=== PATIENT | male | born 1955 | race Caucasian/White ===

== ENCOUNTER 2022-03-14 12:21 | Outpatient (CLI) | payer MEDICARE, OTHER, SELFPAY ==
--- NOTE | ~2022-03-14 | XR_ITS ---
Bilateral Hands Technique: PA, oblique, and lateral views, and ball-catcher's view, were obtained. Clinical History: Rheumatoid arthritis Findings: No acute fracture or dislocation is seen. Osseous alignment is anatomic. Joint spaces are p reserved. Soft tissues are unremarkable. Impression: Unremarkable bilateral hands. Reviewed, dictated and finalized at location [] SEARCH MARKETING ANALYST Impression: Unremarkable bilateral hands.
--- NOTE | ~2022-03-14 | XR_ITS ---
Left foot Technique: AP and lateral weightbearing views were obtained. Clinical History: Rheumatoid arthritis Findings: No acute fracture or dislocation is seen. Osseous alignment is anatomic. Joint spaces are p reserved without erosive or degenerative change. Soft tissues are unremarkable. Impression: Unremarkable left foot radiographs. Reviewed, dictated and finalized at location [] [employer] Impression: Unremarkable left foot radiographs.
--- NOTE | ~2022-03-14 | XR_ITS ---
Right foot Technique: AP and lateral weightbearing views were obtained. Clinical History: Rheumatoid arthritis Findings: No acute fracture or dislocation is seen. Osseous alignment is anatomic. No erosive changes are identified. There is joint space narrowing and prominent osteophyte formation with reactive scle rosis involving the tibiotalar joint, most compatible with severe osteoarthritis. Soft tissues are un remarkable. 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 No definite erosive changes identified. No other significant findings. 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 No definite erosive change s identified. No other significant findings.
== END 2022-03-14 12:22 | disposition home or self-care (01) ==
PROVIDERS: PCP Internal Medicine; Visit Provider Internal Medicine
DX: M05.79 Rheumatoid arthritis with rheumatoid factor of multiple sites without organ or systems involvement (principal); F17.200 Nicotine dependence, unspecified, uncomplicated; Z71.89 Other specified counseling; Z79.899 Other long term (current) drug therapy; M19.071 Primary osteoarthritis, right ankle and foot
CPT/HCPCS: 73130; 73620

== ENCOUNTER 2022-04-21 14:06 | Outpatient (CLI) | payer MEDICARE, OTHER, SELFPAY ==
[2022-04-21 14:36] LABS: Hematocrit 50.9 % (42.0-52.0); Hemoglobin 16.2 g/dL (14.0-18.0); Mean Corpuscular HGB Conc 31.8 g/dl (32-36); Mean Corpuscular Hemoglobin 26.6 pg (26-34); Mean Corpuscular Volume 83.6 fl (80-100); Mean Platelet Volume 10.1 fl (7.4-10.4); Platelet Count Result 337 k/mm3 (150-375); Red Blood Count 6.09 M/mm3 (4.6-6.20); Red Cell Distribution Width 19.2 % (11.5-14.5); White Blood Count 13.1 K/mm3 (4.5-10.0)
[2022-04-21 15:19] LABS: Erythrocyte Sedimentation Rate 2 mm/hr (0-20)
[2022-04-21 16:50] LABS: Vitamin D 25 Hydroxy 41.7 ng/mL
[2022-04-21 16:59] LABS: Alanine Aminotransferase 32 U/L (6-50); Albumin Level 4.5 g/dL (3.5-5.1); Alkaline Phosphatase 110 U/L (38-126); Anion Gap 9 mmol/L (8-16); Aspartate Amino Transferase 36 U/L (17-59); Bilirubin,Total 0.5 mg/dL (0.2-1.3); Blood Urea Nitrogen 17 mg/dL (9-20); CRP 1.3 mg/dL (<1.0); Calcium 9.4 mg/dL (8.4-10.2); Carbon Dioxide 27 mmol/L (22-30); Chloride 100 mmol/L (98-107); Estimated Glomerular Filt Rate > 60; Glucose 127 mg/dL (65-110); Potassium 3.9 mmol/L (3.4-5.0); Sodium 136 mmol/L (137-145); Uric Acid 5.5 mg/dL (3.5-8.5)
[2022-04-21 17:02] LABS: Hepatitis B Surface Antigen Negative (Negative)
[2022-04-21 17:26] LABS: Hepatitis B Surface Anti Res Indeterminate
[2022-04-21 21:03] LABS: Hepatitis C Virus Antibody Negative (Negative)
== END 2022-04-21 14:07 | disposition home or self-care (01) ==
PROVIDERS: PCP Internal Medicine; Visit Provider Internal Medicine
DX: R89.9 Unspecified abnormal finding in specimens from other organs, systems and tissues (principal); M05.79 Rheumatoid arthritis with rheumatoid factor of multiple sites without organ or systems involvement; M19.90 Unspecified osteoarthritis, unspecified site; Z79.899 Other long term (current) drug therapy
CPT/HCPCS: 36415; 80053; 82306; 84550; 85027; 85652; 86140; 86706; 86803; 87340

== ENCOUNTER 2022-10-12 10:53 | Outpatient (CLI) | payer MEDICARE, OTHER, SELFPAY ==
[2022-10-12 11:47] LABS: Hematocrit 50.8 % (42.0-52.0); Hemoglobin 15.8 g/dL (14.0-18.0); Mean Corpuscular HGB Conc 31.1 g/dl (32-36); Mean Corpuscular Hemoglobin 25.9 pg (26-34); Mean Corpuscular Volume 83.4 fl (80-100); Mean Platelet Volume 10.5 fl (7.4-10.4); Platelet Count Result 347 k/mm3 (150-375); Red Blood Count 6.09 M/mm3 (4.6-6.20); Red Cell Distribution Width 19.3 % (11.5-14.5); White Blood Count 13.7 K/mm3 (4.5-10.0)
[2022-10-12 12:06] LABS: Alanine Aminotransferase 25 U/L (6-50); Albumin Level 4.3 g/dL (3.5-5.1); Alkaline Phosphatase 118 U/L (38-126); Anion Gap 4 mmol/L (8-16); Aspartate Amino Transferase 32 U/L (17-59); Bilirubin,Total 0.3 mg/dL (0.2-1.3); Blood Urea Nitrogen 16 mg/dL (9-20); CRP 0.7 mg/dL (<1.0); Calcium 9.3 mg/dL (8.4-10.2); Carbon Dioxide 26 mmol/L (22-30); Chloride 104 mmol/L (98-107); Estimated Glomerular Filt Rate > 60; Glucose 126 mg/dL (65-110); Potassium 4.1 mmol/L (3.4-5.0); Sodium 134 mmol/L (137-145)
[2022-10-12 12:15] LABS: Erythrocyte Sedimentation Rate 5 mm/hr (0-20)
== END 2022-10-12 10:54 | disposition home or self-care (01) ==
LOC: ANHLAB 10:55
PROVIDERS: PCP Internal Medicine; Visit Provider Internal Medicine
DX: R89.9 Unspecified abnormal finding in specimens from other organs, systems and tissues (principal); M05.79 Rheumatoid arthritis with rheumatoid factor of multiple sites without organ or systems involvement; M19.90 Unspecified osteoarthritis, unspecified site
CPT/HCPCS: 36415; 80053; 85027; 85652; 86140